=== PATIENT | male | born 1980 ===

== ENCOUNTER 2017-06-28 10:58 | Emergency (ER) | payer BC, OTHER ==
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
[2017-06-28] MEDS ORDERED: Oxycodone/Acetaminophen 5/325 mg Tab PO STA (14:45)
[2017-06-28] MEDS ORDERED: Oxycodone/Acetaminophen 5/325 mg Tab ONE (14:58)
[2017-06-28 14:59] VITALS: BP 132/74; PULSE 75; RESP 18; TEMP 98.2; O2SAT 97
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
== END 2017-06-28 16:28 | disposition home or self-care (01) ==
LOC: C.ER 10:58
DX: S13.4XXA Sprain of ligaments of cervical spine, initial encounter (principal); S33.5XXA Sprain of ligaments of lumbar spine, initial encounter; V43.52XA Car driver injured in collision with other type car in traffic accident, initial encounter; Y92.410 Unspecified street and highway as the place of occurrence of the external cause
CPT/HCPCS: 71045; 72125; 72131; 96372; 99285; J1885